=== PATIENT | male | born 1935 | race Caucasian/White ===

== ENCOUNTER → 2016-09-06 | Outpatient (REF) | payer MEDICARE, OTHER ==
[~2016-09-06] MED LIST: /ADVA50050 INH; /MOXI40TA OR; /PANT40TA OR; /TAMS4CA OR; /TIOT18INH INH; /WARF25TA OR; /WARF5TA OR; /WARF5TA PO; ACET65TA OR; ALBU17IN2 IN; AVOD0.5C PO; CEFT500T OR; COLA100C2 OR; COUM7.5T PO; DILA100C OR; DILA100C PO; FLEXERIL OR; GLUCOSAMINE PO; LESC20CA OR; LEVO112T PO; MAALSUS OR; MILKSUS OR; MIRALEX OR; SYNT100T OR; SYNT75TA OR; VICO5TAB OR; VITA500047 PO; VITAMIN D50000 UNT OR; WARF5VL IV; [UNRECOGNIZED DRUG - OTHER] PO; [UNRECOGNIZED DRUG - OTHER] PO
== END ==
LOC: M LAB REF 16:37
PROVIDERS: ATTEND Physician Assistant
DX: J03.90 Acute tonsillitis, unspecified (principal)

== ENCOUNTER 2016-11-19 12:16 | Emergency (ER) | payer MEDICARE, OTHER ==
[~2016-11-19] VITALS: Ht 175.3 cm; Wt 90.7 kg
[2016-11-19] MEDS ORDERED: FLUT44IN (12:34)
[2016-11-19] MEDS ORDERED: LEVO125T3 PO (12:34)
[2016-11-19] MEDS ORDERED: PANT40TA2 (12:34)
[2016-11-19] MEDS ORDERED: DUTA1CAP PO (12:34)
[2016-11-19] MEDS ORDERED: FLUV20CA2 PO (12:34)
[2016-11-19] MEDS ORDERED: COLC1TAB5 PO (12:34)
[2016-11-19] MEDS ORDERED: ALBU83IN (12:34)
[2016-11-19] MEDS ORDERED: TAMSULOSIN PO (12:36)
[2016-11-19] MEDS ORDERED: FLOM5CAP PO (12:36)
[2016-11-19] MEDS ORDERED: COUM1TAB17 PO (12:36)
[2016-11-19] MEDS ORDERED: COUM2.5T11 PO (12:36)
--- NOTE | 2016-11-19 14:59 | REP ---
PELVIC ULTRASOUND: HISTORY: Assess for right inguinal hernia. Bilateral exam was obtained for comparison. Multiple ultrasonographic images over the inguinal region show no evidence of a definite bowel containing inguinal hernia. IMPRESSION: No evidence of a bowel containing inguinal hernia. Whether or not the inguinal rings are enlarged and contain normal adipose or whether or not there is sufficient adipose within an abnormally enlarged inguinal ring leading into the inguinal canal suggesting a purely mesentery containing inguinal hernia cannot be stated by ultrasound. CT would be necessary. Signed by Yuan Vallecillo DO 11/19/2016 03:08 P
[2016-11-19] MEDS ORDERED: CYCL10TA PO (15:55)
[2016-11-19] MEDS ORDERED: NAPR500T PO (15:55)
[2016-11-19 16:20] VITALS: BP 125/69
--- NOTE | 2016-11-22 15:52 | ED PDOC ---
Post-Departure Follow-Up radiology report faxed to Agnes Stewart MD November 22, 2016 15:52
== END 2016-11-19 16:22 | disposition home or self-care (01) ==
LOC: M ED 13:56
DX: M54.5 Low back pain (principal); I25.10 Atherosclerotic heart disease of native coronary artery without angina pectoris; Z87.891 Personal history of nicotine dependence; Z88.8 Allergy status to other drugs, medicaments and biological substances; Z79.899 Other long term (current) drug therapy; Z79.01 Long term (current) use of anticoagulants; R51 Headache; J45.909 Unspecified asthma, uncomplicated; K57.30 Diverticulosis of large intestine without perforation or abscess without bleeding; K44.9 Diaphragmatic hernia without obstruction or gangrene; N40.0 Benign prostatic hyperplasia without lower urinary tract symptoms; Z87.442 Personal history of urinary calculi; E03.9 Hypothyroidism, unspecified

== ENCOUNTER → 2017-01-28 | Outpatient (REF) | payer MEDICARE, OTHER ==
[~2017-01-28] MED LIST changes: +ALBU83IN; +COLC1TAB14 PO; +COUM1TAB17 PO; +COUM2.5T17 PO; +CYCL10TA PO; +DUTA1CAP PO; +FLOM5CAP PO; +FLUT44IN; +FLUV20CA2 PO; +LEVO125T4 PO; +NAPR500T PO; +PANT40TA2; +TAMSULOSIN PO
== END ==
LOC: M LAB REF 15:01
PROVIDERS: ATTEND Nurse Practitioner Adult Health
DX: R56.9 Unspecified convulsions (principal)

== ENCOUNTER → 2017-05-05 | Outpatient (REF) | payer MEDICARE, OTHER | LOC: M SMT 16:45 | PROVIDERS: ATTEND Nurse Practitioner Women's Health | DX: N40.1 Benign prostatic hyperplasia with lower urinary tract symptoms (principal) | CPT/HCPCS: 51798; 81001; 87086; G0463 ==

== ENCOUNTER → 2017-05-10 | Outpatient (REF) | payer MEDICARE, OTHER ==
[2017-05-10 18:34] LABS: AMYLASE 48 U/L (25-115)
== END ==
LOC: M LAB REF 17:11
PROVIDERS: ATTEND Nurse Practitioner Adult Health
DX: R11.0 Nausea (principal); R10.9 Unspecified abdominal pain

== ENCOUNTER → 2017-06-08 | Outpatient (REF) | payer MEDICARE, OTHER ==
[2017-06-08 14:16] LABS: AMYLASE 55 U/L (25-115)
== END ==
LOC: M LAB REF 12:24
PROVIDERS: ATTEND Nurse Practitioner Adult Health
DX: R14.0 Abdominal distension (gaseous) (principal)

== ENCOUNTER → 2017-07-01 | Outpatient (CLI) | payer MEDICARE, OTHER ==
--- NOTE | 2017-07-01 10:52 | REP ---
BILIARY SCAN WITH GALLBLADDER EJECTION FRACTION: 07/01/2017 COMPARISON: Gallbladder ultrasound 06/10 and biliary scan 07/31/2009. CLINICAL HISTORY: Right upper quadrant pain, nausea, vomiting, bloating. Heartburn, reflux and hiatal hernia. Negative gallbladder ultrasound. TECHNIQUE: The patient received 6.4 mCi technetium 99m mebrofenin via an IV. Sequential 5 minute images for 1 hour in anterior projection obtained. Thereafter, the patient had injection of 1.7 mcg Kinevac in 50 mL normal saline infused over 20 minutes and beginning 65 minutes post tracer injection. Region of interest drawn around gallbladder and gallbladder ejection fraction calculated by a semiautomated method for 30 minutes. FINDINGS. Homogeneous tracer distribution throughout the liver is noted. Activity is first seen in the gallbladder fossa at 10 minutes and activity into the common duct by 15 minutes. There was good washout of activity from the liver. The gallbladder ejection fraction is 73% at 30 minutes with a normal ejection fraction with this technique greater than 48%. Peristaltic activity into the small bowel is noted. IMPRESSION: 1. Normal biliary scan with prompt appearance of activity in the gallbladder fossa at 10 minutes and with biliary to bowel transit about 1 hour. Good washout of activity from the liver and gallbladder ejection fraction of 73%, normal. Signed by Dre Higgins MD 07/01/2017 06:43 P
== END ==
LOC: M RAD 07:44
PROVIDERS: ATTEND Nurse Practitioner Adult Health
DX: R10.9 Unspecified abdominal pain (principal)
CPT/HCPCS: 78227; A9537; J2805

== ENCOUNTER → 2017-08-10 | Outpatient (REF) | payer MEDICARE, OTHER | LOC: M LAB REF 16:07 | DX: R30.0 Dysuria (principal) | CPT/HCPCS: 87086 ==

== ENCOUNTER 2017-08-21 06:53 | Emergency (ER) | payer MEDICARE, OTHER ==
[2017-08-21] MEDS: ACETAMINOPHEN 325 MG TAB PO (09:00)
[2017-08-21 09:01] LABS: BASO % 0.2 % (0.0-1.0); EOS % 0.2 % (0.0-3.0); HEMATOCRIT 45.4 % (42.0-52.0); HEMOGLOBIN 15.3 g/dl (14.0-18.0); IMMATURE GRANULOCYTE % 0.4 % (0-0); LYMPH # 1.2 10^3/uL (1.5-4.5); LYMPH % 11.7 % (24.0-44.0); MEAN CORPUSCULAR HEMOGLOBIN 30.8 pg (27.0-33.0); MEAN CORPUSCULAR HGB CONC 33.7 g/dl (32.0-36.5); MEAN CORPUSCULAR VOLUME 91.3 fl (80.0-96.0); MONO # 0.5 10^3/uL (0.0-0.8); MONO % 5.4 % (0.0-5.0); NEUTROPHILS # 8.2 10^3/uL (1.8-7.7); NEUTROPHILS % 82.1 % (36.0-66.0); PLATELET COUNT, AUTOMATED 230 10^3/uL (150-450); RED BLOOD COUNT 4.97 10^6/uL (4.30-6.10); RED CELL DISTRIBUTION WIDTH 13.6 % (11.5-14.5)
[2017-08-21 09:27] LABS: INR 4.26; PROTHROMBIN TIME 43.2 SECONDS (12.4-14.5)
[2017-08-21 09:28] LABS: PARTIAL THROMBOPLASTIN TIME 45.7 SECONDS (26.8-37.9)
[2017-08-21 09:58] LABS: ALBUMIN 3.9 GM/DL (3.2-5.2); ALBUMIN/GLOBULIN RATIO 1.11 (1.00-1.93); ALKALINE PHOSPHATASE 116 U/L (45-117); ALT/SGPT 27 U/L (12-78); ANION GAP 7 MEQ/L (8-16); AST/SGOT 22 U/L (7-37); BILIRUBIN,DIRECT 0.2 MG/DL (0.0-0.2); BILIRUBIN,TOTAL 0.4 MG/DL (0.2-1.0); BLOOD UREA NITROGEN 24 MG/DL (7-18); CALCIUM LEVEL 8.7 MG/DL (8.8-10.2); CARBON DIOXIDE LEVEL 27 MEQ/L (21-32); CHLORIDE LEVEL 107 MEQ/L (98-107); CREATININE FOR GFR 1.11 MG/DL (0.70-1.30); GLOMERULAR FILTRATION RATE > 60.0 (>35); GLUCOSE, FASTING 133 MG/DL (70-100); POTASSIUM SERUM 4.7 MEQ/L (3.5-5.1); SODIUM LEVEL 141 MEQ/L (136-145); TOTAL PROTEIN 7.4 GM/DL (6.4-8.2)
[2017-08-21] MEDS ORDERED: ISOVUE-370 76% 100ML VIAL (Q9967) As Ordered (10:19)
== END 2017-08-21 12:06 | disposition home or self-care (01) ==
LOC: M ED 06:53
DX: I82.402 Acute embolism and thrombosis of unspecified deep veins of left lower extremity (principal); R79.1 Abnormal coagulation profile; M10.072 Idiopathic gout, left ankle and foot; J44.9 Chronic obstructive pulmonary disease, unspecified; R56.9 Unspecified convulsions; N40.1 Benign prostatic hyperplasia with lower urinary tract symptoms; K57.90 Diverticulosis of intestine, part unspecified, without perforation or abscess without bleeding; K44.9 Diaphragmatic hernia without obstruction or gangrene; Z87.891 Personal history of nicotine dependence; Z79.01 Long term (current) use of anticoagulants; Z79.899 Other long term (current) drug therapy; Z88.5 Allergy status to narcotic agent
CPT/HCPCS: Q9967

== ENCOUNTER → 2017-09-06 | Outpatient (REF) | payer MEDICARE, OTHER ==
[2017-09-06 20:07] LABS: URIC ACID 4.3 MG/DL (3.5-7.2)
== END ==
LOC: M LAB REF 17:35
DX: M10.9 Gout, unspecified (principal)
CPT/HCPCS: 84550

== ENCOUNTER → 2017-09-24 | Outpatient (REF) | payer MEDICARE, OTHER | LOC: M LAB REF 10:25 | DX: R30.0 Dysuria (principal) | CPT/HCPCS: 87086 ==

== ENCOUNTER 2017-11-19 10:36 | Emergency (ER) | payer MEDICARE, OTHER | END 2017-11-19 12:42 | disposition home or self-care (01) | LOC: M ED 10:36 | DX: M10.041 Idiopathic gout, right hand (principal); M10.031 Idiopathic gout, right wrist; J45.909 Unspecified asthma, uncomplicated; J44.9 Chronic obstructive pulmonary disease, unspecified; R56.9 Unspecified convulsions; E78.5 Hyperlipidemia, unspecified; K21.9 Gastro-esophageal reflux disease without esophagitis; Z86.718 Personal history of other venous thrombosis and embolism; Z88.8 Allergy status to other drugs, medicaments and biological substances; Z79.899 Other long term (current) drug therapy; Z79.51 Long term (current) use of inhaled steroids; Z79.01 Long term (current) use of anticoagulants | CPT/HCPCS: 93971 ==

== ENCOUNTER → 2018-04-03 | Outpatient (REF) | payer MEDICARE, OTHER | LOC: M LAB REF 17:39 | DX: M10.9 Gout, unspecified (principal) | CPT/HCPCS: 84550 ==

== ENCOUNTER 2018-04-05 06:35 | Emergency (ER) | payer MEDICARE, OTHER ==
[2018-04-05 08:04] LABS: BASO % 0.2 % (0.0-1.0); EOS % 0.2 % (0.0-3.0); HEMATOCRIT 38.2 % (42.0-52.0); HEMOGLOBIN 12.7 g/dl (13.5-17.5); IMMATURE GRANULOCYTE % 0.5 % (0-3.0); LYMPH % 9.5 % (24.0-44.0); MEAN CORPUSCULAR HEMOGLOBIN 30.8 pg (27.0-33.0); MEAN CORPUSCULAR HGB CONC 33.2 g/dl (32.0-36.5); MEAN CORPUSCULAR VOLUME 92.7 fl (80.0-96.0); MONO # 0.7 10^3/uL (0.0-0.8); MONO % 6.6 % (0.0-5.0); NEUTROPHILS # 8.6 10^3/uL (1.8-7.7); PLATELET COUNT, AUTOMATED 308 10^3/uL (150-450); RED BLOOD COUNT 4.12 10^6/uL (4.30-6.10); RED CELL DISTRIBUTION WIDTH 13.7 % (11.5-14.5); WHITE BLOOD COUNT 10.4 10^3/uL (4.0-10.0)
[2018-04-05] MEDS: ONDANSETRON 4MG/2ML VIAL (J2405) IV (08:06)
[2018-04-05] MEDS: MORPHINE 2 MG/ML 1ML SYRINGE (J2270) IV (08:07)
[2018-04-05 08:31] LABS: ERYTHROCYTE SEDIMENTATION RATE 52 mm/hr (0-20)
[2018-04-05 09:18] LABS: ANION GAP 8 MEQ/L (8-16); BLOOD UREA NITROGEN 18 MG/DL (7-18); C REACTIVE PROTEIN QUANTITATIV 6.04 MG/DL (0.00-0.30); CALCIUM LEVEL 8.9 MG/DL (8.8-10.2); CARBON DIOXIDE LEVEL 23 MEQ/L (21-32); CHLORIDE LEVEL 105 MEQ/L (98-107); CREATININE FOR GFR 1.08 MG/DL (0.70-1.30); GLOMERULAR FILTRATION RATE > 60.0 (>35); GLUCOSE, FASTING 125 MG/DL (70-100); POTASSIUM SERUM 4.6 MEQ/L (3.5-5.1); SODIUM LEVEL 136 MEQ/L (136-145); URIC ACID 2.2 MG/DL (3.5-7.2)
== END 2018-04-05 11:48 | disposition home or self-care (01) ==
LOC: M ED 06:35
DX: M19.032 Primary osteoarthritis, left wrist (principal); M48.061 Spinal stenosis, lumbar region without neurogenic claudication; M50.30 Other cervical disc degeneration, unspecified cervical region; J44.9 Chronic obstructive pulmonary disease, unspecified; G40.909 Epilepsy, unspecified, not intractable, without status epilepticus; Z86.711 Personal history of pulmonary embolism; Z86.718 Personal history of other venous thrombosis and embolism; Z79.01 Long term (current) use of anticoagulants; Z79.899 Other long term (current) drug therapy; Z88.8 Allergy status to other drugs, medicaments and biological substances
CPT/HCPCS: J2405

== ENCOUNTER → 2018-04-21 | Outpatient (REF) | payer MEDICARE, OTHER ==
[2018-04-21 19:48] LABS: RHEUMATOID FACTOR QUANT 22.1 IU/ML (<15.0)
[2018-04-25 00:07] LABS: ANTINUCLEAR ANTIBODIES DIRECT Negative (Negative)
[2018-04-25 00:07] LABS: CYCLIC CITRULLINATED PEPTIDE 10 units (0-19)
== END ==
LOC: M LAB REF 17:18
DX: M15.9 Polyosteoarthritis, unspecified (principal); M79.1 Myalgia
CPT/HCPCS: 86038

== ENCOUNTER → 2018-08-23 | Outpatient (REF) | payer MEDICARE, OTHER ==
[~2018-08-23] MED LIST changes: +ACET30TAB PO; +CEFD1CAP8 PO; +DILA100C; +FLOM0.4C39 PO; -FLOM5CAP PO; +HYDR-3713 PO; +NAPR-50 PO; -NAPR500T PO; -PANT40TA2; +PANT40TA3; +PRED20TA PO
== END ==
LOC: M LAB REF 12:04
PROVIDERS: ATTEND Nurse Practitioner Adult Health
DX: G40.909 Epilepsy, unspecified, not intractable, without status epilepticus (principal)

== ENCOUNTER 2018-09-14 08:01 | Day surgery (SDC) | payer MEDICARE, OTHER ==
[~2018-09-14] VITALS: Ht 175.3 cm; Wt 91.4 kg
[~2018-09-14 08:01] MED LIST changes: +BALANCED SALT IRRIGATION SOLUTION 500ML BAG (FOR OR EYE MACHINE) As Ordered ONE; +CEFUROXIME 1MG/0.1ML INTRACAMERAL INJ As Ordered ONE; +DUOVISC (0.50ML VISCOAT/0.55ML PROVISC) OPHTH KIT As Ordered ONE; +FLUT44IN INH; +GLUC1CAP10 PO; +LEVO137T2 PO; +LIDOCAINE 0.75%/EPINEPHRINE 0.025% IN BSS 1ML SYR INTRACAMERAL (OR ONLY) As Ordered ONE; +MIDAZOLAM INJ 2 MG/2 ML VIAL (J2250) As Ordered ONE; +OFLOXACIN 0.3 % (OCUFLOX) OPTH SOL 5ML OS ONE; +PHENYLEPHRINE 2.5% OPHTH SOL 2ML OS ONE; +POVIDONE-IODINE 5% OPHTH PREP SOL 30ML As Ordered ONE; +PROPARACAINE 0.5% OPHTH SOL 15ML OS ONE; +SAW1000C PO; +TROPICAMIDE 1% OPHTH SOLN 2ML OS ONE; +VITA100067 PO; +fentaNYL 100 MCG/2 ML INJECTION (J3010) As Ordered ONE
[2018-09-14 08:40] LABS: INR 2.94; PROTHROMBIN TIME 31.3 SECONDS (12.1-14.4)
[2018-09-14 08:41] LABS: PARTIAL THROMBOPLASTIN TIME 37.2 SECONDS (25.4-37.6)
[2018-09-14 09:55] VITALS: BP 103/57
--- NOTE | 2018-09-15 19:31 | RO ---
DATE OF PROCEDURE: 09/14/2018 PREOPERATIVE DIAGNOSIS: 1. Visually significant nuclear sclerotic cataract left eye. POSTOPERATIVE DIAGNOSIS: 1. Visually significant nuclear sclerotic cataract left eye. PROCEDURE: 1. Cataract extraction with use of phacoemulsification and placement of intraocular lens, AU00T0, 21.5 D, left eye. SURGEON: Lul Soares DO HEALTHCARE ADMINISTRATIVE ASSISTANT: None. ANESTHESIA: Local with monitored anesthesia care (MAC). COMPLICATIONS: None. POSTOPERATIVE CONDITION: Stable. INDICATIONS FOR SURGERY: 1. Blurred vision affecting patients activities of daily living. DESCRIPTION OF PROCEDURE: The patient was seen in the preoperative area and properly identified. The correct operative eye was identified and marked. The patient received topical anesthetic, antibiotics, and topical dilating drops. The patient was then transferred to the operating room. The correct side was re-identified, and a time-out was performed. The eye was prepped and draped in a sterile fashion. The eyelids were isolated with Tegaderm tape, and the lids were held open with an adjustable speculum. A 1.0 mm paracentesis incision was made. Intraocular preservative-free Shugarcaine was then injected into the anterior chamber. Viscoelastic was then injected into the anterior chamber through the paracentesis. Using a 2.4 mm sharp-tipped keratome, the anterior chamber was entered via a temporal clear cornea incision. A continuous curvilinear capsulorrhexis was created with Utrata forceps. Hydrodissection was performed with balanced salt solution (BSS) on a blunt cannula until the nucleus was able to rotate freely. The crystalline lens was phacoemulsified and aspirated. Irrigation/aspiration was used to remove the cortical material. Cohesive viscoelastic was placed into the capsular bag to deepen it. The implant was placed into the capsular bag and allowed to unfold. Placement was confirmed by visualizing the anterior capsulorrhexis. Irrigation/aspiration was used to remove the viscoelastic. The clear corneal incision was hydrated with BSS on a blunt cannula. The lens was well positioned. The incisions were then tested for leaks and found to be negative. The eye was then palpated for appropriate pressure and adjusted accordingly with BSS. The eyelid speculum was then carefully removed. A shield was placed over the eye. The patient tolerated the procedure well and was discharged to the recovery unit in a stable condition. ERIC
== END 2018-09-14 10:20 | disposition home or self-care (01) ==
LOC: M SDC 08:01
PROVIDERS: ATTEND Ophthalmology
DX: H25.12 Age-related nuclear cataract, left eye (principal); E78.5 Hyperlipidemia, unspecified; K21.9 Gastro-esophageal reflux disease without esophagitis; M10.9 Gout, unspecified; F41.9 Anxiety disorder, unspecified; Z79.01 Long term (current) use of anticoagulants; Z86.711 Personal history of pulmonary embolism; Z79.899 Other long term (current) drug therapy; N40.0 Benign prostatic hyperplasia without lower urinary tract symptoms
CPT/HCPCS: 36415; 66984; 85610; 85730; J2250; J3010; V2632

== ENCOUNTER 2018-09-21 08:15 | Day surgery (SDC) | payer MEDICARE, OTHER ==
[~2018-09-21] VITALS: Ht 175.3 cm; Wt 77.6 kg
[~2018-09-21 08:15] MED LIST changes: +OFLOXACIN 0.3 % (OCUFLOX) OPTH SOL 5ML OD ONE; -OFLOXACIN 0.3 % (OCUFLOX) OPTH SOL 5ML OS ONE; +PHENYLEPHRINE 2.5% OPHTH SOL 2ML OD ONE; -PHENYLEPHRINE 2.5% OPHTH SOL 2ML OS ONE; +PROPARACAINE 0.5% OPHTH SOL 15ML OD ONE; -PROPARACAINE 0.5% OPHTH SOL 15ML OS ONE; +TROPICAMIDE 1% OPHTH SOLN 2ML OD ONE; -TROPICAMIDE 1% OPHTH SOLN 2ML OS ONE
[2018-09-21 11:40] VITALS: BP 109/78
--- NOTE | 2018-09-22 15:42 | RO ---
DATE OF PROCEDURE: 09/21/2018 PREOPERATIVE DIAGNOSIS: 1. Visually significant nuclear sclerotic cataract right eye. POSTOPERATIVE DIAGNOSIS: 1. Visually significant nuclear sclerotic cataract right eye. PROCEDURE: 1. Cataract extraction with use of phacoemulsification and placement of intraocular lens, AU00T0, 21.5 D, right eye. SURGEON: Lul Soares DO NURSE ASSESSOR: None. ANESTHESIA: Local with monitored anesthesia care (MAC). COMPLICATIONS: None. POSTOPERATIVE CONDITION: Stable. INDICATIONS FOR SURGERY: 1. Blurred vision affecting patients activities of daily living. DESCRIPTION OF PROCEDURE: The patient was seen in the preoperative area and properly identified. The correct operative eye was identified and marked. The patient received topical anesthetic, antibiotics, and topical dilating drops. The patient was then transferred to the operating room. The correct side was re-identified, and a time-out was performed. The eye was prepped and draped in a sterile fashion. The eyelids were isolated with Tegaderm tape, and the lids were held open with an adjustable speculum. A 1.0 mm paracentesis incision was made. Intraocular preservative-free Shugarcaine was then injected into the anterior chamber. Viscoelastic was then injected into the anterior chamber through the paracentesis. Using a 2.4 mm sharp-tipped keratome, the anterior chamber was entered via a temporal clear cornea incision. A continuous curvilinear capsulorrhexis was created with Utrata forceps. Hydrodissection was performed with balanced salt solution (BSS) on a blunt cannula until the nucleus was able to rotate freely. The crystalline lens was phacoemulsified and aspirated. Irrigation/aspiration was used to remove the cortical material. Cohesive viscoelastic was placed into the capsular bag to deepen it. The implant was placed into the capsular bag and allowed to unfold. Placement was confirmed by visualizing the anterior capsulorrhexis. Irrigation/aspiration was used to remove the viscoelastic. The clear corneal incision was hydrated with BSS on a blunt cannula. The lens was well positioned. The incisions were then tested for leaks and found to be negative. The eye was then palpated for appropriate pressure and adjusted accordingly with BSS. The eyelid speculum was then carefully removed. A shield was placed over the eye. The patient tolerated the procedure well and was discharged to the recovery unit in a stable condition.
== END 2018-09-21 11:44 | disposition home or self-care (01) ==
LOC: M SDC 08:15
PROVIDERS: ATTEND Ophthalmology
DX: H25.11 Age-related nuclear cataract, right eye (principal); E78.5 Hyperlipidemia, unspecified; E03.9 Hypothyroidism, unspecified; M10.9 Gout, unspecified; J44.9 Chronic obstructive pulmonary disease, unspecified; K21.9 Gastro-esophageal reflux disease without esophagitis; Z79.51 Long term (current) use of inhaled steroids; Z87.891 Personal history of nicotine dependence; Z88.8 Allergy status to other drugs, medicaments and biological substances; Z79.01 Long term (current) use of anticoagulants; F41.9 Anxiety disorder, unspecified; Z86.711 Personal history of pulmonary embolism; N40.0 Benign prostatic hyperplasia without lower urinary tract symptoms
CPT/HCPCS: 66984; J2250; J3010; V2632

== ENCOUNTER → 2018-10-02 | Outpatient (CLI) | payer MEDICARE, OTHER ==
[~2018-10-02] MED LIST changes: -BALANCED SALT IRRIGATION SOLUTION 500ML BAG (FOR OR EYE MACHINE) As Ordered ONE; -CEFUROXIME 1MG/0.1ML INTRACAMERAL INJ As Ordered ONE; -DUOVISC (0.50ML VISCOAT/0.55ML PROVISC) OPHTH KIT As Ordered ONE; -LIDOCAINE 0.75%/EPINEPHRINE 0.025% IN BSS 1ML SYR INTRACAMERAL (OR ONLY) As Ordered ONE; -MIDAZOLAM INJ 2 MG/2 ML VIAL (J2250) As Ordered ONE; -OFLOXACIN 0.3 % (OCUFLOX) OPTH SOL 5ML OD ONE; -PHENYLEPHRINE 2.5% OPHTH SOL 2ML OD ONE; -POVIDONE-IODINE 5% OPHTH PREP SOL 30ML As Ordered ONE; -PROPARACAINE 0.5% OPHTH SOL 15ML OD ONE; -TROPICAMIDE 1% OPHTH SOLN 2ML OD ONE; -fentaNYL 100 MCG/2 ML INJECTION (J3010) As Ordered ONE
[2018-10-02 12:51] LABS: BASO % 0.7 % (0.0-1.0); EOS # 0.1 10^3/uL (0.0-0.50); EOS % 1.5 % (0.0-3.0); HEMATOCRIT 42.3 % (42.0-52.0); HEMOGLOBIN 13.9 g/dl (13.5-17.5); LYMPH # 1.9 10^3/uL (1.5-4.5); LYMPH % 35.4 % (24.0-44.0); MEAN CORPUSCULAR HEMOGLOBIN 30.3 pg (27.0-33.0); MEAN CORPUSCULAR HGB CONC 32.9 g/dl (32.0-36.5); MEAN CORPUSCULAR VOLUME 92.2 fl (80.0-96.0); MONO # 0.6 10^3/uL (0.0-0.8); MONO % 11.1 % (0.0-5.0); NEUTROPHILS # 2.7 10^3/uL (1.8-7.7); NEUTROPHILS % 50.9 % (36.0-66.0); PLATELET COUNT, AUTOMATED 203 10^3/uL (150-450); RED BLOOD COUNT 4.59 10^6/uL (4.30-6.10); WHITE BLOOD COUNT 5.4 10^3/uL (4.0-10.0)
[2018-10-02 13:12] LABS: ERYTHROCYTE SEDIMENTATION RATE 4 mm/hr (0-20)
[2018-10-02 13:59] LABS: ALT/SGPT 29 U/L (12-78); BILIRUBIN,TOTAL 0.4 MG/DL (0.2-1.0); BLOOD UREA NITROGEN 21 MG/DL (7-18); C REACTIVE PROTEIN QUANTITATIV < 0.30 MG/DL (0.00-0.30); CALCIUM LEVEL 8.6 MG/DL (8.8-10.2); CARBON DIOXIDE LEVEL 27 MEQ/L (21-32); CHLORIDE LEVEL 105 MEQ/L (98-107); CREATININE FOR GFR 1.19 MG/DL (0.70-1.30); GLOMERULAR FILTRATION RATE > 60.0 (>35); GLUCOSE, FASTING 102 MG/DL (70-100); POTASSIUM SERUM 4.8 MEQ/L (3.5-5.1); RHEUMATOID FACTOR QUANT 22.5 IU/ML (<15.0); SODIUM LEVEL 139 MEQ/L (136-145); TOTAL PROTEIN 7.5 GM/DL (6.4-8.2); URIC ACID 4.5 MG/DL (3.5-7.2)
--- NOTE | 2018-10-02 14:16 | REP ---
BILATERAL HAND, EIGHT VIEWS: HISTORY: Swelling. RIGHT HAND: There is no acute fracture or dislocation. There is narrowing of the 1st carpometacarpal joint space with associated osteophyte formation. There is narrowing of the 2nd and 3rd metacarpophalangeal joint spaces. Osteophytes are present at the intermediate and distal interphalangeal joint spaces of the 2nd digit and on the 3rd metacarpal. 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 IMPRESSION: Degenerative change as described above. LEFT HAND: There is no acute fracture or dislocation. There is narrowing of the lateral carpal and 1st carpometacarpal joint space with associated osteophyte formation. There is narrowing of the 2nd and 3rd metacarpophalangeal joint spaces. Osteophytes are present at the intermediate and distal interphalangeal joint spaces of the 2nd digit and on the heads of the 2nd and 3rd metacarpals. IMPRESSION: Degenerative change as described above. Electronically Signed by Delfino Dupont MD 10/02/2018 02:21 P
--- NOTE | 2018-10-02 14:24 | REP ---
BILATERAL KNEE: 10 VIEWS. HISTORY: Hand swelling. RIGHT KNEE: There is no acute fracture or dislocation. There is mild narrowing of the medial knee joint space and minimal narrowing of the lateral knee joint space. The patellofemoral joint space is normal in appearance. Chondrocalcinosis is present. IMPRESSION: Degenerative change as describe above. LEFT KNEE: There is no acute fracture or dislocation. There is minimal narrowing of the knee joint space. The patellofemoral joint space is normal in appearance. Chondrocalcinosis is present. An osteophyte is present on the patella. IMPRESSION: Degenerative change as described above. Electronically Signed by Delfino Dupont MD 10/02/2018 02:29 P
--- NOTE | 2018-10-02 14:24 | REP ---
BILATERAL WRIST, EIGHT VIEWS: HISTORY: Hand swelling. RIGHT WRIST: There is no acute fracture or dislocation. There is narrowing of the first carpometacarpal joint space with associated osteophyte formation. The remaining joint spaces are normal in appearance. IMPRESSION: Degenerative change as described above. LEFT WRIST: There is no acute fracture or dislocation. There is narrowing of the lateral carpal and first carpometacarpal joint space. Osteophytes are present at the first carpometacarpal joint space. IMPRESSION: Degenerative change as described above. Electronically Signed by Delfino Dupont MD 10/02/2018 02:29 P
--- NOTE | 2018-10-02 14:25 | REP ---
BILATERAL AP KNEE STANDING: HISTORY: Hand swelling. There is mild narrowing of the medial right knee joint space and minimal narrowing of the lateral right knee joint space. There is minimal narrowing of the left knee joint space. IMPRESSION: Degenerative change as described above. Electronically Signed by Delfino Dupont MD 10/02/2018 02:30 P
== END ==
LOC: M LAB 12:18
PROVIDERS: ATTEND Internal Medicine Rheumatology
DX: M79.89 Other specified soft tissue disorders (principal); Z87.39 Personal history of other diseases of the musculoskeletal system and connective tissue; M19.031 Primary osteoarthritis, right wrist; M19.032 Primary osteoarthritis, left wrist; M17.0 Bilateral primary osteoarthritis of knee; M19.041 Primary osteoarthritis, right hand; M19.042 Primary osteoarthritis, left hand

== ENCOUNTER → 2019-01-15 | Outpatient (REF) | payer MEDICARE, OTHER ==
[~2019-01-15] MED LIST changes: -/ADVA50050 INH; -/MOXI40TA OR; -/PANT40TA OR; -/TAMS4CA OR; -/TIOT18INH INH; -/WARF25TA OR; -/WARF5TA OR; -/WARF5TA PO; +ACET-716 PO; -ACET30TAB PO; +ADVA1AER2 INH; +AVEL1TAB2 OR; +COUM1TAB17 OR; +COUM1TAB18 OR; +FLOM0.4C39 OR; -NAPR-50 PO; +NAPR-837 PO; +PROT1TAB2 OR; +SPIR1CAP INH
[2019-01-15 13:05] LABS: ALBUMIN 3.9 GM/DL (3.2-5.2); ALT/SGPT 27 U/L (12-78); BILIRUBIN,TOTAL 0.3 MG/DL (0.2-1.0); BLOOD UREA NITROGEN 23 MG/DL (7-18); CALCIUM LEVEL 9.1 MG/DL (8.8-10.2); CARBON DIOXIDE LEVEL 27 MEQ/L (21-32); CHLORIDE LEVEL 103 MEQ/L (98-107); CREATININE FOR GFR 1.05 MG/DL (0.70-1.30); GLOMERULAR FILTRATION RATE > 60.0 (>35); GLUCOSE, FASTING 92 MG/DL (70-100); POTASSIUM SERUM 4.6 MEQ/L (3.5-5.1); RHEUMATOID FACTOR QUANT 19.8 IU/ML (<15.0); SODIUM LEVEL 137 MEQ/L (136-145); TOTAL PROTEIN 7.3 GM/DL (6.4-8.2)
[2019-01-15 14:45] LABS: BASO # 0.1 10^3/uL (0.0-0.2); BASO % 0.8 % (0.0-1.0); EOS # 0.2 10^3/uL (0.0-0.50); EOS % 2.5 % (0.0-3.0); HEMATOCRIT 42.5 % (42.0-52.0); HEMOGLOBIN 13.9 g/dl (13.5-17.5); LYMPH # 1.9 10^3/uL (1.5-4.5); LYMPH % 32.2 % (24.0-44.0); MEAN CORPUSCULAR HEMOGLOBIN 31.6 pg (27.0-33.0); MEAN CORPUSCULAR HGB CONC 32.7 g/dl (32.0-36.5); MEAN CORPUSCULAR VOLUME 96.6 fl (80.0-96.0); MONO # 0.7 10^3/uL (0.0-0.8); MONO % 12.1 % (0.0-5.0); NEUTROPHILS # 3.1 10^3/uL (1.8-7.7); NEUTROPHILS % 52.2 % (36.0-66.0); PLATELET COUNT, AUTOMATED 219 10^3/uL (150-450)
== END ==
LOC: M SFHCPLAZ 11:28
PROVIDERS: ATTEND Internal Medicine Rheumatology
DX: M79.89 Other specified soft tissue disorders (principal)

== ENCOUNTER → 2019-02-28 | Outpatient (CLI) | payer MEDICARE, OTHER ==
[~2019-02-28] MED LIST changes: +ALLO100T PO; +ISOVUE-370 76% 100ML VIAL (Q9967) As Ordered ONE; +PRAV20TA2 PO; +RANI150T14; +SERT-138; +VITA100T59 PO
--- NOTE | 2019-03-01 07:44 | REP ---
CT ORBITS WITH CONTRAST: HISTORY: Trauma. The globes, optic nerves and rectus muscles are normal in appearance. There is no orbital lesion. Minimal mucosal thickening is present in the right maxillary sinus. The remaining sinuses are clear. There is no fracture. IMPRESSION: Sinus mucosal thickening as described above. Electronically Signed by Delfino Dupont MD 03/01/2019 08:19 A
== END ==
LOC: M RAD 14:53
PROVIDERS: ATTEND Nurse Practitioner Adult Health
DX: H10.502 Unspecified blepharoconjunctivitis, left eye (principal); J34.89 Other specified disorders of nose and nasal sinuses
CPT/HCPCS: 70481; Q9967

== ENCOUNTER 2019-05-10 13:38 | Emergency (ER) | payer OTHER, MEDICARE ==
[~2019-05-10] VITALS: Ht 175.3 cm; Wt 88.4 kg
[~2019-05-10 13:38] MED LIST changes: -ALLO100T PO; -ISOVUE-370 76% 100ML VIAL (Q9967) As Ordered ONE; -PRAV20TA2 PO; -RANI150T14; -SERT-138; -VITA100T59 PO
[2019-05-10] MEDS ORDERED: ALLO100T PO (14:00)
[2019-05-10] MEDS ORDERED: PRAV20TA2 PO (14:00)
[2019-05-10] MEDS ORDERED: VITA100T59 PO (14:00)
[2019-05-10] MEDS ORDERED: RANI150T14 (14:00)
--- NOTE | 2019-05-10 16:02 | REP ---
CT cervical spine: 05/10/2019. Indication: Cervical spine trauma. Comparison: 07/22/2016. Technique: Unenhanced axial CT images of the cervical spine were obtained with coronal and sagittal reconstructions provided. Findings: There is no acute fracture, subluxation or dislocation. There is straightening of the cervical lordosis with minimal retrolisthesis of C3 and C4. Extensive multilevel degenerative sequelae are present without severe spinal canal narrowing/cord compression detected. There is no hemorrhage or additional acute post traumatic findings detected within the spinal canal. Bilateral palatine tonsilliths are noted. The prevertebral soft tissues are unremarkable. Impression: No acute post traumatic injuries of the osseous cervical spine. Electronically Signed by Rashid Cartagena DO 05/10/2019 03:54 P
[2019-05-10 16:13] VITALS: BP 147/85
== END 2019-05-10 16:47 | disposition home or self-care (01) ==
LOC: M ED 13:38
DX: S13.4XXA Sprain of ligaments of cervical spine, initial encounter (principal); V43.52XA Car driver injured in collision with other type car in traffic accident, initial encounter; Y92.9 Unspecified place or not applicable; Y93.9 Activity, unspecified; Y99.9 Unspecified external cause status; K21.9 Gastro-esophageal reflux disease without esophagitis; N40.0 Benign prostatic hyperplasia without lower urinary tract symptoms; E03.9 Hypothyroidism, unspecified; F41.9 Anxiety disorder, unspecified; Z86.711 Personal history of pulmonary embolism; Z79.01 Long term (current) use of anticoagulants; Z79.899 Other long term (current) drug therapy; Z88.8 Allergy status to other drugs, medicaments and biological substances

== ENCOUNTER → 2019-06-05 | Outpatient (REF) | payer MEDICARE, OTHER ==
[~2019-06-05] MED LIST changes: +ALLO100T PO; +PRAV20TA2 PO; +RANI150T14; +VITA100T59 PO
== END ==
LOC: M LAB REF 16:16
PROVIDERS: ATTEND Nurse Practitioner Adult Health
DX: F41.0 Panic disorder [episodic paroxysmal anxiety] (principal); R56.9 Unspecified convulsions

== ENCOUNTER 2019-07-14 12:06 | Emergency (ER) | payer MEDICARE, OTHER ==
[~2019-07-14] VITALS: Ht 175.3 cm; Wt 86.8 kg
[2019-07-14] MEDS ORDERED: SERT-138 (12:16)
--- NOTE | 2019-07-14 13:15 | REP ---
REASON: Pain after trauma. COMPARISON: 01/22/2009 The frontal view of the chest is unchanged from the prior exam showing no acute disease. Four views of the right ribs shows no evidence of acute fracture or significant changes from the prior exam. Electronically Signed by Yuan Vallecillo DO 07/14/2019 01:25 P
[2019-07-14 13:27] LABS: BASO % 0.7 % (0.0-1.0); EOS # 0.1 10^3/uL (0.0-0.5); EOS % 1.9 % (0.0-3.0); HEMATOCRIT 41.8 % (42.0-52.0); HEMOGLOBIN 13.4 g/dl (13.5-17.5); LYMPH # 1.5 10^3/uL (1.5-5.0); MEAN CORPUSCULAR HGB CONC 32.1 g/dl (32.0-36.5); MEAN CORPUSCULAR VOLUME 96.8 fl (80.0-96.0); MONO # 0.6 10^3/uL (0.0-0.8); NEUTROPHILS # 3.1 10^3/uL (1.5-8.5); NEUTROPHILS % 58.2 % (36.0-66.0); PLATELET COUNT, AUTOMATED 191 10^3/uL (150-450); RED BLOOD COUNT 4.32 10^6/uL (4.30-6.10); WHITE BLOOD COUNT 5.4 10^3/uL (4.0-10.0)
[2019-07-14] MEDS ORDERED: ISOVUE-370 76% 100ML VIAL (Q9967) As Ordered ONE (13:27)
[2019-07-14 13:42] LABS: INR 2.78; PARTIAL THROMBOPLASTIN TIME 35.4 SECONDS (25.0-38.4); PROTHROMBIN TIME 29.2 SECONDS (11.8-14.0)
[2019-07-14 14:12] VITALS: BP 129/59
--- NOTE | 2019-07-15 08:03 | REP ---
REASON: Trauma. COMPARISON: 11/28/2017, the latest prior. The mediastinum and pulmonary christopher are unchanged. 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 No mediastinal or hilar adenopathy has developed. There are no pleural or pericardial effusions. There is no significant change in the appearance of the imaged osseous structures. There is no evidence of an acute fracture. Evaluation of the lung lam shows stable appearing chronic changes. No new abnormal nodules, masses, or opacities have developed. IMPRESSION:Stable CT examination of the chest. There is no evidence of acute disease. Electronically Signed by Yuan Vallecillo DO 07/15/2019 08:59 A
--- NOTE | 2019-07-15 08:40 | REP ---
REASON FOR EXAM: Trauma. Noncontrast enhanced examination 01/25/2014 and contrast enhanced examination 06/20/2013. CONTRAST: 100 mL [id number]. The liver, gallbladder, spleen, pancreas, adrenal glands and kidneys are essentially unchanged. Note is again made of granulomatous calcifications in the spleen and chronic right renal changes status quo. There was no free fluid or free air. The abdominal aorta and paraaortic regions are within normal limits. The bowel loops and their mesenteries are within normal limits. There is no evidence of an intraabdominal mass or adenopathy. CT PELVIS: There is evidence of increased adipose tissue in the left inguinal canal compared to the right. This has increased from the prior exams. There is no bowel containing hernia. The pelvis bowel loops are within normal limits. There is no pelvic mass or adenopathy. There is no free fluid. Evaluation of the osseous structures shows chronic spinal, hip, and sacroiliac joint degenerative changes. IMPRESSION:1. There is no evidence of acute disease. 2. There are chronic changes as described above. Electronically Signed by Yuan Vallecillo DO 07/15/2019 08:59 A
== END 2019-07-14 14:09 | disposition home or self-care (01) ==
LOC: M ED 12:06
DX: S20.219A Contusion of unspecified front wall of thorax, initial encounter (principal); R10.11 Right upper quadrant pain; W01.0XXA Fall on same level from slipping, tripping and stumbling without subsequent striking against object, initial encounter; Y92.018 Other place in single-family (private) house as the place of occurrence of the external cause; Z86.718 Personal history of other venous thrombosis and embolism; Z88.5 Allergy status to narcotic agent; Z79.01 Long term (current) use of anticoagulants; Z79.51 Long term (current) use of inhaled steroids; Z79.899 Other long term (current) drug therapy
CPT/HCPCS: 36415; 71101; 71260; 74177; 80047; 85025; 85610; 85730; 86850; 86900; 86901; 99284; Q9967

== ENCOUNTER → 2020-01-17 | Outpatient (REF) | payer MEDICARE, OTHER ==
[~2020-01-17] MED LIST changes: +CYCL-707 PO; -CYCL10TA PO; -DUTA1CAP PO; +DUTA1CAP2 PO; +SERT-138
== END ==
LOC: M LAB REF 16:08
PROVIDERS: ATTEND Nurse Practitioner Adult Health
DX: Z51.81 Encounter for therapeutic drug level monitoring (principal); Z79.01 Long term (current) use of anticoagulants

== ENCOUNTER → 2021-04-23 | Outpatient (REF) | payer MEDICARE, OTHER ==
[~2021-04-23] MED LIST changes: +PANT40TA29; -PANT40TA3
== END ==
LOC: M LAB REF 16:23
PROVIDERS: ATTEND Nurse Practitioner Adult Health
DX: G60.9 Hereditary and idiopathic neuropathy, unspecified (principal); Z51.81 Encounter for therapeutic drug level monitoring; R56.9 Unspecified convulsions

== ENCOUNTER → 2021-08-06 | Outpatient (REF) | payer MEDICARE, OTHER ==
[~2021-08-06] MED LIST changes: -CEFD1CAP8 PO; +CEFD300C41 PO
[2021-08-06 17:31] LABS: PHENOBARBITAL LEVEL 2.1 UG/ML (15.0-40.0); PHENYTOIN (DILANTIN) 13.5 UG/ML (10.0-20.0)
== END ==
LOC: M LAB REF 16:11
PROVIDERS: ATTEND Nurse Practitioner Adult Health
DX: Z51.81 Encounter for therapeutic drug level monitoring (principal); R56.9 Unspecified convulsions

== ENCOUNTER 2021-10-22 13:20 | Emergency (ER) | payer MEDICARE, OTHER ==
[~2021-10-22] VITALS: Ht 175.3 cm; Wt 81.8 kg
[2021-10-22] MEDS ORDERED: DERMABOND TOPICAL SKIN ADHESIVE TOP ONE (16:50)
[2021-10-22 17:30] VITALS: BP 132/60
== END 2021-10-22 17:50 | disposition home or self-care (01) ==
LOC: M ED 13:20
DX: S00.01XA Abrasion of scalp, initial encounter (principal); W22.8XXA Striking against or struck by other objects, initial encounter; G40.911 Epilepsy, unspecified, intractable, with status epilepticus; J45.909 Unspecified asthma, uncomplicated; J44.9 Chronic obstructive pulmonary disease, unspecified; K46.9 Unspecified abdominal hernia without obstruction or gangrene; K57.92 Diverticulitis of intestine, part unspecified, without perforation or abscess without bleeding; Y92.009 Unspecified place in unspecified non-institutional (private) residence as the place of occurrence of the external cause; Y93.9 Activity, unspecified; Y99.9 Unspecified external cause status; Z79.51 Long term (current) use of inhaled steroids; Z79.899 Other long term (current) drug therapy; Z88.6 Allergy status to analgesic agent

== ENCOUNTER → 2021-10-23 | Outpatient (REF) | payer MEDICARE, OTHER | LOC: M LAB REF 16:16 | PROVIDERS: ATTEND Nurse Practitioner Adult Health | DX: N18.31 Chronic kidney disease, stage 3a (principal) ==

== ENCOUNTER → 2022-10-20 | Outpatient (CLI) | payer MEDICARE, OTHER ==
[~2022-10-20] MED LIST changes: +ALBU2.5V10; -ALBU83IN
== END ==
LOC: M WUC 13:06
PROVIDERS: ATTEND Student in an Organized Health Care Education/Training Program
DX: M79.641 Pain in right hand (principal)

== ENCOUNTER → 2023-07-26 | Outpatient (REF) | payer MEDICARE, OTHER ==
[~2023-07-26] MED LIST changes: +CEFD1CAP9 PO; -CEFD300C41 PO
== END ==
LOC: M LAB REF 16:49
PROVIDERS: ATTEND Physician Assistant
DX: N30.01 Acute cystitis with hematuria (principal)

== ENCOUNTER → 2023-09-21 | Outpatient (CLI) | payer MEDICARE, OTHER | LOC: M RAD 12:27 | PROVIDERS: ATTEND Nurse Practitioner Family | DX: K40.90 Unilateral inguinal hernia, without obstruction or gangrene, not specified as recurrent (principal) ==

== ENCOUNTER 2023-11-24 08:32 | Day surgery (SDC) | payer MEDICARE, OTHER ==
[~2023-11-24] VITALS: Ht 175.3 cm; Wt 82.6 kg
[~2023-11-24 08:32] MED LIST changes: +ALBU8.5H; +ALLO300T2 PO; +B-12100010 PO; +COLC0.6T47 PO; +LEVO150T7 PO; +MV-M1CAP8 PO; +PHEN100C PO; +TAMS1CAP17 PO; +VITA100093 PO; +XARE10TA PO
[2023-11-24] MEDS: ceFAZolin SOD 2 GM in IV 1 EA IV ONE (11:11)
[2023-11-24] MEDS ORDERED: ETOMIDATE INJ 20MG/10ML VIAL As Ordered ONE (11:27)
[2023-11-24] MEDS ORDERED: METOCLOPRAMIDE INJ 10MG/2ML VIAL As Ordered ONE (11:27)
[2023-11-24] MEDS ORDERED: fentaNYL 250 MCG/5 ML INJECTION As Ordered ONE (11:27)
[2023-11-24] MEDS ORDERED: dexmedeTOMIDine (4MCG/ML)200MCG/50ML BTL (PRECEDEX) As Ordered ONE (11:27)
[2023-11-24] MEDS ORDERED: MIDAZOLAM INJ 2MG/2ML VIAL As Ordered ONE (11:27)
[2023-11-24] MEDS ORDERED: ONDANSETRON 4MG 2ML VIAL As Ordered ONE (11:27)
[2023-11-24] MEDS ORDERED: SUGAMMADEX SODIUM 500 MG/5 ML VIAL (BRIDION) As Ordered ONE (11:27)
[2023-11-24] MEDS ORDERED: ROCURONIUM BROMIDE 50MG/5ML VIAL As Ordered ONE (11:27)
[2023-11-24] MEDS ORDERED: LIDOCAINE 2% 100MG/5ML SDV (FOR ANES.) As Ordered ONE (11:27)
[2023-11-24] MEDS ORDERED: propofoL 200 MG/20 ML VIAL As Ordered ONE (11:27)
[2023-11-24] MEDS ORDERED: ACETAMINOPHEN 1000MG 100ML IV BAG As Ordered ONE (11:38)
[2023-11-24] MEDS ORDERED: LR 1,000 ML IV SCH (13:00)
[2023-11-24] MEDS ORDERED: fentaNYL 100 MCG/2 ML INJECTION As Ordered ONE (13:01)
[2023-11-24] MEDS: fentaNYL 100 MCG/2 ML INJECTION IV PRN (13:26)
[2023-11-24] MEDS: oxyCODONE 5MG TAB PO PRN (14:00)
[2023-11-24] MEDS: HYDROMORPHONE HCL 0.5 MG/ 0.5 ML SYRINGE IV PRN (14:03)
[2023-11-24] MEDS ORDERED: NORCO, ANEXSIA 5/325MG TABLET (HYDROcodone/ACETAMINOPHEN) PO PRN (14:05)
[2023-11-24] MEDS: ONDANSETRON 4MG 2ML VIAL IV PRN (14:22)
[2023-11-24 16:25] VITALS: BP 128/61; TEMP 97; O2SAT 100
== END 2023-11-24 16:30 | disposition home or self-care (01) ==
LOC: M SDC 08:32
PROVIDERS: ATTEND Surgery
DX: K40.21 Bilateral inguinal hernia, without obstruction or gangrene, recurrent (principal); I73.9 Peripheral vascular disease, unspecified; M10.9 Gout, unspecified; E03.9 Hypothyroidism, unspecified; K57.92 Diverticulitis of intestine, part unspecified, without perforation or abscess without bleeding; K21.9 Gastro-esophageal reflux disease without esophagitis; Z87.891 Personal history of nicotine dependence; Z79.51 Long term (current) use of inhaled steroids; Z79.899 Other long term (current) drug therapy; Z79.01 Long term (current) use of anticoagulants; Z86.711 Personal history of pulmonary embolism; F41.9 Anxiety disorder, unspecified; J44.9 Chronic obstructive pulmonary disease, unspecified; Z88.8 Allergy status to other drugs, medicaments and biological substances
CPT/HCPCS: 49651; C1781; J0131; J0665; J0690; J1100; J1170; J2250; J2405; J2765; J3010; S2900

== ENCOUNTER → 2023-12-21 | Outpatient (REF) | payer MEDICARE, OTHER | LOC: M LAB REF 16:22 | PROVIDERS: ATTEND Physician Assistant | DX: R30.0 Dysuria (principal) ==

== ENCOUNTER → 2023-12-27 | Outpatient (REF) | payer MEDICARE, OTHER | LOC: M LAB REF 16:26 | PROVIDERS: ATTEND Physician Assistant Medical | DX: N39.0 Urinary tract infection, site not specified (principal) ==

== ENCOUNTER 2024-01-02 12:37 | Emergency (ER) | payer MEDICARE, OTHER ==
[~2024-01-02] VITALS: Ht 175.3 cm; Wt 81.5 kg
[2024-01-02 13:59] LABS: BASO % 0.5 % (0.0-1.0); EOS # 0.4 10^3/uL (0.0-0.5); EOS % 4.3 % (0.0-3.0); HEMATOCRIT 44.5 % (42.0-52.0); HEMOGLOBIN 14.4 g/dl (13.5-17.5); LYMPH % 24.2 % (24.0-44.0); MEAN CORPUSCULAR HEMOGLOBIN 30.9 pg (27.0-33.0); MEAN CORPUSCULAR HGB CONC 32.4 g/dl (32.0-36.5); MEAN CORPUSCULAR VOLUME 95.5 fl (80.0-96.0); MONO # 0.9 10^3/uL (0.0-0.8); MONO % 10.4 % (2.0-8.0); NEUTROPHILS # 5.1 10^3/uL (1.5-8.5); NEUTROPHILS % 60.5 % (36.0-66.0); PLATELET COUNT, AUTOMATED 286 10^3/uL (150-450); RED BLOOD COUNT 4.66 10^6/uL (4.30-6.10); WHITE BLOOD COUNT 8.4 10^3/uL (4.0-10.0)
[2024-01-02 14:10] LABS: INR 1.28; PROTHROMBIN TIME 15.6 SECONDS (12.5-14.5)
[2024-01-02 14:21] LABS: LIPASE 60 U/L (12-53)
[2024-01-02 14:22] LABS: AMYLASE 71 U/L (30-118)
[2024-01-02 14:23] LABS: ALBUMIN 3.7 G/DL (3.2-5.2); ALKALINE PHOSPHATASE 127 U/L (46-116); ALT/SGPT 26 U/L (7.0-40); AST/SGOT 20 U/L (<34); BILIRUBIN,DIRECT 0.2 MG/DL (<0.4); BILIRUBIN,TOTAL 0.5 MG/DL (0.3-1.2); BLOOD UREA NITROGEN 24 MG/DL (9-23); CALCIUM LEVEL 9.9 MG/DL (8.3-10.6); CARBON DIOXIDE LEVEL 28 MMOL/L (20-31); CHLORIDE LEVEL 105 MMOL/L (98-107); CREATININE FOR GFR 1.04 MG/DL (0.70-1.30); GLOMERULAR FILTRATION RATE > 60.0 (>35); GLUCOSE, FASTING 115 MG/DL (74-106); SODIUM LEVEL 139 MMOL/L (136-145); TOTAL PROTEIN 7.5 G/DL (5.7-8.2)
[2024-01-02] MEDS ORDERED: LEVO1TAB39 PO (15:38)
[2024-01-02] MEDS ORDERED: BACI1CAP4 PO (15:50)
[2024-01-02 15:56] VITALS: BP 121/65; TEMP 96.5; O2SAT 95
== END 2024-01-02 15:56 | disposition home or self-care (01) ==
LOC: M ED 12:37
DX: N30.90 Cystitis, unspecified without hematuria (principal); K44.9 Diaphragmatic hernia without obstruction or gangrene; N40.0 Benign prostatic hyperplasia without lower urinary tract symptoms; M51.36 Other intervertebral disc degeneration, lumbar region; M16.0 Bilateral primary osteoarthritis of hip; Z88.5 Allergy status to narcotic agent; Z79.52 Long term (current) use of systemic steroids; Z79.83 Long term (current) use of bisphosphonates; Z79.899 Other long term (current) drug therapy; Z79.2 Long term (current) use of antibiotics

== ENCOUNTER → 2024-02-07 | Outpatient (REF) | payer MEDICARE, OTHER ==
[~2024-02-07] MED LIST changes: +BACI1CAP4 PO; +LEVO1TAB39 PO
== END ==
LOC: M LAB REF 20:06
PROVIDERS: ATTEND Physician Assistant
DX: R30.0 Dysuria (principal)

== ENCOUNTER → 2024-04-13 | Outpatient (REF) | payer MEDICARE, OTHER ==
[2024-04-13 17:24] LABS: APPEARANCE, URINE CLEAR (CLEAR); BACTERIA, URINE AUTO NEGATIVE (NEGATIVE); BILIRUBIN, URINE AUTO NEGATIVE (NEGATIVE); BLOOD, URINE BLOOD NEGATIVE (NEGATIVE); COLOR, URINE YELLOW (YELLOW); GLUCOSE, URINE (UA) AUTO NEGATIVE (NEGATIVE); KETONE, URINE AUTO NEGATIVE (NEGATIVE); LEUKOCYTE ESTERASE, URINE AUTO NEGATIVE (NEGATIVE); NITRITE, URINE AUTO NEGATIVE (NEGATIVE); PROTEIN, URINE AUTO NEGATIVE (NEGATIVE); RBC, URINE AUTO 1 /HPF (0-3); SPECIFIC GRAVITY URINE AUTO 1.014 (1.002-1.035); SQUAMOUS EPITHELIAL CELL UR AU 0 /HPF (0-6); UROBILINOGEN, URINE AUTO 0.2 mg/dL (0.0-2.0); WBC, URINE AUTO 0 /HPF (0-3)
== END ==
LOC: M SMT 16:57
PROVIDERS: ATTEND Nurse Practitioner Family
DX: N39.0 Urinary tract infection, site not specified (principal)

== ENCOUNTER 2024-07-25 01:12 | Inpatient (IN) | payer MEDICARE, OTHER ==
[~2024-07-25] VITALS: Ht 175.3 cm; Wt 85.8 kg
[~2024-07-25 01:12] MED LIST changes: -ALBU8.5H; +ALBU8.5H PO
[2024-07-25] MEDS: methylPREDNISolone 125MG 2ML VIAL IV ONE (03:23)
[2024-07-25] MEDS: IPRATROPIUM 0.5MG/ALBUTEROL 2.5MG INH SOL UD 3ML (DUONEB) NEB SCH (03:29)
[2024-07-25 03:32] LABS: KETONE, URINE AUTO RFX NEGATIVE (NEGATIVE); LEUKOCYTE ESTERASE UR AUTO RFX NEGATIVE (NEGATIVE)
[2024-07-25 03:32] LABS: BASO % 0.3 % (0.0-1.0); EOS # 0.1 10^3/uL (0.0-0.5); EOS % 1.2 % (0.0-3.0); HEMATOCRIT 43.5 % (42.0-52.0); HEMOGLOBIN 14.5 g/dl (13.5-17.5); LYMPH # 1.1 10^3/uL (1.5-5.0); MEAN CORPUSCULAR HGB CONC 33.3 g/dl (32.0-36.5); MEAN CORPUSCULAR VOLUME 92.9 fl (80.0-96.0); MONO # 0.8 10^3/uL (0.0-0.8); MONO % 12.8 % (2.0-8.0); NEUTROPHILS # 4.4 10^3/uL (1.5-8.5); NEUTROPHILS % 68.4 % (36.0-66.0); PLATELET COUNT, AUTOMATED 181 10^3/uL (150-450); RED BLOOD COUNT 4.68 10^6/uL (4.30-6.10); WHITE BLOOD COUNT 6.4 10^3/uL (4.0-10.0)
[2024-07-25] MEDS: NS (Normal Saline) 0.9% 1,000 ML IV ONE (05:34)
[2024-07-25 05:38] LABS: BLOOD UREA NITROGEN 25 MG/DL (9-23); CALCIUM LEVEL 9.2 MG/DL (8.3-10.6); CARBON DIOXIDE LEVEL 26 MMOL/L (20-31); CHLORIDE LEVEL 103 MMOL/L (98-107); CREATININE FOR GFR 1.03 MG/DL (0.70-1.30); GLOMERULAR FILTRATION RATE > 60.0 (>35); GLUCOSE, FASTING 121 MG/DL (74-106); POTASSIUM SERUM 4.9 MMOL/L (3.5-5.1); SODIUM LEVEL 136 MMOL/L (136-145)
[2024-07-25] MEDS ORDERED: ISOVUE-370 76% 100ML VIAL As Ordered ONE (06:22)
[2024-07-25] MEDS: dilTIAZem 25MG/5ML VIAL IV STA (07:12)
[2024-07-25] MEDS: FLUTICASONE PROP 0.05% NASAL SPRAY 16 GM (FLONASE) NARES SCH (09:00)
[2024-07-25] MEDS: OXYMETAZOLINE 0.05% NASAL SPRAY (AFRIN) SCH (09:00)
[2024-07-25] MEDS ORDERED: DILA100C PO (09:12)
[2024-07-25] MEDS ORDERED: XARE20TA PO (09:12)
[2024-07-25] MEDS ORDERED: FLUTICASONE PROP 0.05% NASAL SPRAY 16 GM (FLONASE) NARES ONE (10:45)
[2024-07-25] MEDS ORDERED: ONDANSETRON 4MG 2ML VIAL IV PRN (10:45)
[2024-07-25] MEDS ORDERED: MONTELUKAST 10 MG TAB PO ONE (10:45)
[2024-07-25] MEDS ORDERED: BENZ200C70 PO (11:19)
[2024-07-25] MEDS ORDERED: SAW500CA7 PO (11:19)
[2024-07-25] MEDS ORDERED: ASCO500T PO (11:22)
[2024-07-25] MEDS ORDERED: HOME MED LIST COMPLETE! XX SCH (11:25)
[2024-07-25 11:40] VITALS: BP 130/80; TEMP 97.8; O2SAT 96
[2024-07-25] MEDS ORDERED: OMEPRAZOLE 20MG CAP PO ONE (12:00)
[2024-07-25] MEDS ORDERED: OXYMETAZOLINE 0.05% NASAL SPRAY (AFRIN) ONE (12:00)
[2024-07-25] MEDS ORDERED: ACETAMINOPHEN 325 MG TAB PO PRN (12:00)
[2024-07-25] MEDS ORDERED: CETIRIZINE (ZyrTEC) 10 MG TAB PO ONE (12:00)
[2024-07-25] MEDS: guaiFENesin DM LIQ 10ML UD PO ONE (12:00)
[2024-07-25 12:07] LABS: CHOLESTEROL LEVEL 162 MG/DL (<200); CHOLESTEROL RISK RATIO 2.57 (<5); HDL CHOLESTEROL 62.9 MG/DL (>40); LDL CHOLESTEROL 87.5 MG/DL (<100); NON-HDL-C 99.1 MG/DL; TRIGLYCERIDES LEVEL 58 MG/DL (<150)
[2024-07-25] MEDS: IPRATROPIUM 0.02% SOLN 0.5MG 2.5ML NEB INH SCH (12:07)
[2024-07-25] MEDS: LEVALBUTEROL 1.25MG 0.5ML CONCENTRATE NEB INH SCH (12:07)
[2024-07-25 12:10] LABS: THYROID STIMULATING HORMONE 0.673 uIU/ML (0.55-4.78); THYROXINE (T4) 7.4 UG/DL (4.5-10.9)
[2024-07-25 12:13] LABS: FREE THYROXINE INDEX 4.2 % (1.4-3.8); T UPTAKE 57.2 % (22.5-37.0)
[2024-07-25] MEDS: LACTOBACILLUS ACIDOPHILUS CAP (BACID) PO SCH (12:23)
[2024-07-25] MEDS: MONTELUKAST 10 MG TAB PO SCH (12:23)
[2024-07-25] MEDS: OMEPRAZOLE 20MG CAP PO SCH (12:24)
[2024-07-25] MEDS: METOPROLOL TART 25 MG TABLET PO ONE (12:24)
[2024-07-25] MEDS: CETIRIZINE (ZyrTEC) 10 MG TAB PO SCH (12:25)
[2024-07-25] MEDS: guaiFENesin ER TABLET 600 MG TAB PO SCH (12:25)
[2024-07-25] MEDS: MIDODRINE 5 MG TAB PO ONE (12:25)
[2024-07-25] MEDS: DOXYCYCLINE HYCLATE 100MG TABLET PO SCH (12:25)
[2024-07-25 12:37] LABS: HEMOGLOBIN A1c 5.8 % (4.0-6.0)
[2024-07-25] MEDS: DIGOXIN INJ 0.5 MG/2 ML AMP IV ONE ×3 (12:59→23:28)
[2024-07-25] MEDS: METOPROLOL 5 MG/5 ML VIAL IV SCH (13:00)
[2024-07-25 13:20] VITALS: BP 103/68
[2024-07-25] MEDS ORDERED: guaiFENesin DM LIQ 10ML UD PO PRN (15:00)
[2024-07-25 16:00] VITALS: BP 115/67; TEMP 97.7; O2SAT 96
[2024-07-25] MEDS: MIDODRINE 5 MG TAB PO SCH (16:00)
[2024-07-25] MEDS: methylPREDNISolone 40MG 1ML VIAL IV SCH (17:43)
[2024-07-25] MEDS: RIVAROXABAN 20MG TAB (XARELTO) PO SCH (17:43)
[2024-07-25 18:01] VITALS: O2SAT 97
[2024-07-25 18:48] LABS: CK-MB VALUE MASS 2.8 NG/ML (<3.6)
[2024-07-25 18:50] LABS: MB/CK RELATIVE INDEX 1.76 (< OR =4)
[2024-07-25 20:31] VITALS: BP 135/74; TEMP 97.8; O2SAT 100
[2024-07-25] MEDS ORDERED: APIXABAN 2.5 MG TAB (ELIQUIS) PO SCH (21:00)
[2024-07-25 23:22] VITALS: BP 124/71; TEMP 98.3; O2SAT 95
[2024-07-26] VITALS (7 sets, daily range): BP systolic 124–146; BP diastolic 68–84; TEMP 97.4–97.8; O2SAT 92–100
[2024-07-26 00:35] LABS: CK-MB VALUE MASS 2.5 NG/ML (<3.6); MB/CK RELATIVE INDEX 1.47 (< OR =4)
[2024-07-26 06:34] LABS: HEMATOCRIT 41.6 % (42.0-52.0); HEMOGLOBIN 13.6 g/dl (13.5-17.5); MEAN CORPUSCULAR HEMOGLOBIN 30.6 pg (27.0-33.0); MEAN CORPUSCULAR HGB CONC 32.7 g/dl (32.0-36.5); MEAN CORPUSCULAR VOLUME 93.5 fl (80.0-96.0); PLATELET COUNT, AUTOMATED 165 10^3/uL (150-450); RED BLOOD COUNT 4.45 10^6/uL (4.30-6.10); WHITE BLOOD COUNT 7.1 10^3/uL (4.0-10.0)
[2024-07-26 06:48] LABS: BLOOD UREA NITROGEN 28 MG/DL (9-23); CALCIUM LEVEL 9.5 MG/DL (8.3-10.6); CARBON DIOXIDE LEVEL 23 MMOL/L (20-31); CHLORIDE LEVEL 101 MMOL/L (98-107); CREATININE FOR GFR 0.97 MG/DL (0.70-1.30); DIGOXIN LEVEL 0.7 NG/ML (0.8-2.0); GLOMERULAR FILTRATION RATE > 60.0 (>35); GLUCOSE, FASTING 143 MG/DL (74-106); MAGNESIUM LEVEL 1.7 MG/DL (1.8-2.4); POTASSIUM SERUM 5.2 MMOL/L (3.5-5.1); SODIUM LEVEL 137 MMOL/L (136-145)
[2024-07-26] MEDS: METOPROLOL TART 25 MG TABLET PO SCH ×2 (09:49→12:56)
[2024-07-26] MEDS: predniSONE 20 MG TAB PO SCH (09:49)
[2024-07-26] MEDS: MAGNESIUM OXIDE 400MG TAB (MAG-OX) PO ONE (09:50)
[2024-07-26] MEDS: MAG SULF 1GM/100ML (MAG RUN) 1 GM in IV 1 EA IV ONE (09:50)
[2024-07-26] MEDS: PATIROMER SORBITEX CALCIUM 8.4 GM POWDER PACKET (VELTASSA) PO ONE (09:51)
[2024-07-26] MEDS: CALCIUM GLUCONATE 1,000 MG in DEXTROSE 5% (D5W) MINI-BAG PLU 100 ML IV ONE (11:06)
[2024-07-26] MEDS ORDERED: LEVALBUTEROL 1.25MG 0.5ML CONCENTRATE NEB INH PRN (12:50)
[2024-07-27 00:30] VITALS: BP 125/70
[2024-07-27 03:00] VITALS: BP 125/72; TEMP 97.7; O2SAT 94
[2024-07-27 06:09] LABS: HEMATOCRIT 42.3 % (42.0-52.0); HEMOGLOBIN 14.1 g/dl (13.5-17.5); MEAN CORPUSCULAR HEMOGLOBIN 30.9 pg (27.0-33.0); MEAN CORPUSCULAR HGB CONC 33.3 g/dl (32.0-36.5); MEAN CORPUSCULAR VOLUME 92.6 fl (80.0-96.0); PLATELET COUNT, AUTOMATED 176 10^3/uL (150-450); RED BLOOD COUNT 4.57 10^6/uL (4.30-6.10); WHITE BLOOD COUNT 9.1 10^3/uL (4.0-10.0)
[2024-07-27 06:32] LABS: BLOOD UREA NITROGEN 38 MG/DL (9-23); CALCIUM LEVEL 9.9 MG/DL (8.3-10.6); CARBON DIOXIDE LEVEL 22 MMOL/L (20-31); CHLORIDE LEVEL 103 MMOL/L (98-107); CREATININE FOR GFR 1.02 MG/DL (0.70-1.30); GLOMERULAR FILTRATION RATE > 60.0 (>35); GLUCOSE, FASTING 95 MG/DL (74-106); MAGNESIUM LEVEL 1.9 MG/DL (1.8-2.4); POTASSIUM SERUM 5.2 MMOL/L (3.5-5.1); SODIUM LEVEL 135 MMOL/L (136-145)
[2024-07-27] MEDS ORDERED: BENZONATATE 100MG CAPSULE PO PRN (07:50)
[2024-07-27] MEDS: COLCHICINE 0.6 MG TABLET PO SCH (08:49)
[2024-07-27] MEDS: PHENYTOIN ER 100 MG CAP PO SCH (08:49)
[2024-07-27] MEDS: allopurinoL 300 MG TAB PO SCH (08:50)
[2024-07-27] MEDS: CYANOCOBALAMIN 500 MCG TAB PO SCH (08:50)
[2024-07-27] MEDS: ASCORBIC ACID 500 MG TAB PO SCH (08:50)
[2024-07-27] MEDS: VITAMIN D 1,000 INTERNATIONAL UNITS TABLET PO SCH (08:50)
[2024-07-27] MEDS: LEVOTHYROXINE 150MCG TABLET (0.15MG) PO SCH (08:59)
[2024-07-27] MEDS ORDERED: PRED10TA2 PO (10:40)
[2024-07-27] MEDS ORDERED: METO1TAB87 PO (10:40)
[2024-07-27] MEDS ORDERED: DOXY100T PO (10:40)
[2024-07-27] MEDS ORDERED: PRED20TA PO (10:43)
[2024-07-27] MEDS ORDERED: IPRA0.00 INH (10:43)
[2024-07-27 11:45] VITALS: BP 122/75; TEMP 97.5; O2SAT 96
[2024-07-27 12:11] VITALS: BP 123/76
[2024-07-27] MEDS: PATIROMER SORBITEX CALCIUM 8.4 GM POWDER PACKET (VELTASSA) PO ONE (12:32)
[2024-07-27] MEDS ORDERED: DUTASTERIDE 0.5 MG CAP (AVODART) PO SCH (21:00)
[2024-07-27] MEDS ORDERED: TAMSULOSIN 0.4 MG CAP PO SCH (21:00)
== END 2024-07-27 12:58 | disposition home health service (06) | DRG 309 ==
LOC: M ED 01:12 → M ED INP 10:35 → M PCU 11:29 → M MSPAV 07-26 16:35
PROVIDERS: ADMIT General Practice; ATTEND Student in an Organized Health Care Education/Training Program
DX: I48.91 Unspecified atrial fibrillation (principal); J98.11 Atelectasis; I27.82 Chronic pulmonary embolism; J44.1 Chronic obstructive pulmonary disease with (acute) exacerbation; B97.4 Respiratory syncytial virus as the cause of diseases classified elsewhere; E11.9 Type 2 diabetes mellitus without complications; K21.9 Gastro-esophageal reflux disease without esophagitis; N40.0 Benign prostatic hyperplasia without lower urinary tract symptoms; Z86.711 Personal history of pulmonary embolism; Z88.8 Allergy status to other drugs, medicaments and biological substances; Z79.899 Other long term (current) drug therapy; Z87.891 Personal history of nicotine dependence; Z98.41 Cataract extraction status, right eye; Z98.42 Cataract extraction status, left eye

== ENCOUNTER → 2024-08-09 | Outpatient (REF) | payer MEDICARE, OTHER ==
[~2024-08-09] MED LIST changes: +ASCO500T PO; +BENZ200C70 PO; +DOXY100T PO; +IPRA0.00 INH; +METO1TAB87 PO; +PRED10TA2 PO; +SAW500CA7 PO; +XARE20TA PO
== END ==
LOC: M LAB REF 16:37
PROVIDERS: ATTEND Physician Assistant Medical
DX: N39.0 Urinary tract infection, site not specified (principal)

== ENCOUNTER → 2024-09-22 | Outpatient (REF) | payer MEDICARE, OTHER | LOC: M LAB REF 21:11 | PROVIDERS: ATTEND Physician Assistant | DX: N39.0 Urinary tract infection, site not specified (principal) ==

== ENCOUNTER → 2024-09-25 | Outpatient (REF) | payer MEDICARE, OTHER | LOC: M LAB REF 17:25 | PROVIDERS: ATTEND Nurse Practitioner Family | DX: R30.0 Dysuria (principal) ==

== ENCOUNTER → 2024-10-22 | Outpatient (REF) | payer MEDICARE, OTHER | LOC: M LAB REF 11:56 | PROVIDERS: ATTEND Student in an Organized Health Care Education/Training Program | DX: R30.0 Dysuria (principal) ==

== ENCOUNTER → 2024-10-25 | Outpatient (REF) | payer MEDICARE, OTHER | LOC: M SMT 13:14 | PROVIDERS: ATTEND Urology | DX: N32.89 Other specified disorders of bladder (principal); D49.4 Neoplasm of unspecified behavior of bladder ==

== ENCOUNTER 2025-02-28 19:04 | Emergency (ER) | payer MEDICARE, OTHER ==
[~2025-02-28] VITALS: Ht 175.3 cm; Wt 83.6 kg
[~2025-02-28 19:04] MED LIST changes: -FLOM0.4C39 PO; -PRAV20TA2 PO; +PRAV20TA78 PO; +TAMS-18 PO
[2025-02-28 20:29] LABS: BASO # 0.0 10^3/uL (0.0-0.2); BASO % 0.4 % (0.0-1.0); EOS # 1.4 10^3/uL (0.0-0.5); EOS % 17.8 % (0.0-3.0); LYMPH # 2.5 10^3/uL (1.5-5.0); LYMPH % 31.8 % (24.0-44.0); MONO # 0.7 10^3/uL (0.0-0.8); MONO % 8.5 % (2.0-8.0); NEUTROPHILS # 3.2 10^3/uL (1.5-8.5); NEUTROPHILS % 41.1 % (36.0-66.0); PLATELET COUNT, AUTOMATED 176 10^3/uL (150-450)
[2025-02-28 21:04] LABS: ALT/SGPT 29.0 U/L (7.0-40); AST/SGOT 38.0 U/L (<34); CALCIUM LEVEL 9.5 MG/DL (8.3-10.6); CARBON DIOXIDE LEVEL 27.0 MMOL/L (20-31); CHLORIDE LEVEL 104.0 MMOL/L (98-107); CREATININE FOR GFR 1.14 MG/DL (0.70-1.30); GLOMERULAR FILTRATION RATE 61.5 (>35); POTASSIUM SERUM 5.8 MMOL/L (3.5-5.1); SODIUM LEVEL 139.0 MMOL/L (136-145)
[2025-02-28] MEDS ORDERED: ISOVUE-370 76% 100 ML VIAL As Ordered ONE (21:11)
[2025-02-28 21:46] LABS: KETONE, URINE AUTO RFX NEGATIVE (NEGATIVE); LEUKOCYTE ESTERASE UR AUTO RFX NEGATIVE (NEGATIVE); NITRITE, URINE AUTO RFX NEGATIVE (NEGATIVE); RBC, URINE AUTO RFX 0 /HPF (0-3); SQUAM EPITHELIAL CELL UR AURFX 0 /HPF (0-6); WBC, URINE AUTO RFX 1 /HPF (0-3)
[2025-02-28 23:00] VITALS: BP 133/71; TEMP 96.8
[2025-02-28 23:30] VITALS: O2SAT 97
== END 2025-02-28 23:55 | disposition home or self-care (01) ==
LOC: M ED 19:04
DX: R10.9 Unspecified abdominal pain (principal); K21.9 Gastro-esophageal reflux disease without esophagitis; K44.9 Diaphragmatic hernia without obstruction or gangrene; K57.30 Diverticulosis of large intestine without perforation or abscess without bleeding; J98.11 Atelectasis; I51.7 Cardiomegaly; E11.9 Type 2 diabetes mellitus without complications; J44.9 Chronic obstructive pulmonary disease, unspecified; Z86.711 Personal history of pulmonary embolism; Z86.718 Personal history of other venous thrombosis and embolism; Z88.8 Allergy status to other drugs, medicaments and biological substances; Z79.52 Long term (current) use of systemic steroids; Z79.899 Other long term (current) drug therapy
CPT/HCPCS: 36415; 74177; 80053; 81001; 83605; 83690; 85025; 93005; 99284; Q9967

== ENCOUNTER → 2025-03-01 | Outpatient (REF) | payer MEDICARE, OTHER | LOC: M LAB REF 14:12 | DX: R19.7 Diarrhea, unspecified (principal); A08.11 Acute gastroenteropathy due to Norwalk agent ==

== ENCOUNTER 2025-03-13 07:56 | Emergency (ER) | payer MEDICARE, OTHER ==
[~2025-03-13] VITALS: Ht 175.3 cm; Wt 82.7 kg
[2025-03-13] MEDS ORDERED: METH-855 (08:20)
[2025-03-13] MEDS ORDERED: SERT25TA21 (08:20)
[2025-03-13 10:12] LABS: PLATELET COUNT, AUTOMATED 182 10^3/uL (150-450)
[2025-03-13] MEDS: MORPHINE 2 MG/ML 1 ML VIAL IV ONE (10:20)
[2025-03-13 10:30] LABS: APPEARANCE, URINE CLEAR (CLEAR); BACTERIA, URINE AUTO NEGATIVE (NEGATIVE); BILIRUBIN, URINE AUTO NEGATIVE (NEGATIVE); BLOOD, URINE BLOOD NEGATIVE (NEGATIVE); GLUCOSE, URINE (UA) AUTO NEGATIVE (NEGATIVE); KETONE, URINE AUTO NEGATIVE (NEGATIVE); LEUKOCYTE ESTERASE, URINE AUTO NEGATIVE (NEGATIVE); MUCUS, URINE SMALL (NEGATIVE); NITRITE, URINE AUTO NEGATIVE (NEGATIVE); PROTEIN, URINE AUTO NEGATIVE (NEGATIVE); RBC, URINE AUTO 1 /HPF (0-3); SPECIFIC GRAVITY URINE AUTO 1.013 (1.002-1.035); SQUAMOUS EPITHELIAL CELL UR AU 0 /HPF (0-6); UROBILINOGEN, URINE AUTO 0.2 mg/dL (0.0-2.0); WBC, URINE AUTO 8 /HPF (0-3)
[2025-03-13 10:35] LABS: CALCIUM LEVEL 9.8 MG/DL (8.3-10.6); CARBON DIOXIDE LEVEL 28.0 MMOL/L (20-31); CHLORIDE LEVEL 104.0 MMOL/L (98-107); CREATININE FOR GFR 1.01 MG/DL (0.70-1.30); GLOMERULAR FILTRATION RATE 71.1 (>35); POTASSIUM SERUM 5.2 MMOL/L (3.5-5.1); SODIUM LEVEL 140.0 MMOL/L (136-145)
[2025-03-13] MEDS ORDERED: ISOVUE-370 76% 100 ML VIAL As Ordered ONE (11:10)
[2025-03-13] MEDS ORDERED: OXYC-517 PO (12:41)
[2025-03-13 12:49] VITALS: BP 122/73; TEMP 96.3; O2SAT 98
== END 2025-03-13 12:50 | disposition home or self-care (01) ==
LOC: M ED 07:56
DX: S20.222A Contusion of left back wall of thorax, initial encounter (principal); W22.8XXA Striking against or struck by other objects, initial encounter; J45.909 Unspecified asthma, uncomplicated; E11.9 Type 2 diabetes mellitus without complications; E03.9 Hypothyroidism, unspecified; Z86.79 Personal history of other diseases of the circulatory system; Z86.718 Personal history of other venous thrombosis and embolism; Z88.8 Allergy status to other drugs, medicaments and biological substances; Z79.01 Long term (current) use of anticoagulants; Y92.9 Unspecified place or not applicable; Y93.89 Activity, other specified; Y99.9 Unspecified external cause status; Z79.52 Long term (current) use of systemic steroids; Z79.899 Other long term (current) drug therapy
CPT/HCPCS: 71260; 74177; 80048; 81001; 85027; 96374; 99284; Q9967

== ENCOUNTER → 2025-03-22 | Outpatient (CLI) | payer MEDICARE, OTHER ==
[~2025-03-22] MED LIST changes: +METH-855; +OXYC-517 PO; +SERT25TA21
[2025-03-22 18:24] LABS: CALCIUM LEVEL 9.7 MG/DL (8.3-10.6); CARBON DIOXIDE LEVEL 27.0 MMOL/L (20-31); CHLORIDE LEVEL 101.0 MMOL/L (98-107); CREATININE FOR GFR 1.17 MG/DL (0.70-1.30); GLOMERULAR FILTRATION RATE 59.6 (>35); POTASSIUM SERUM 5.1 MMOL/L (3.5-5.1); SODIUM LEVEL 139.0 MMOL/L (136-145)
== END ==
LOC: M WUC 13:29
PROVIDERS: ATTEND Nurse Practitioner Family
DX: N39.0 Urinary tract infection, site not specified (principal)